=== PATIENT | male | born 1950 | race Caucasian/White ===

== ENCOUNTER → 2016-07-24 | Outpatient (CLI) | payer OTHER, BC | LOC: NUC 07:57 | DX: M85.80 Other specified disorders of bone density and structure, unspecified site (principal); I10 Essential (primary) hypertension ==

== ENCOUNTER → 2018-12-03 | Outpatient (CLI) | payer OTHER, BC ==
--- NOTE | 2018-12-04 07:53 | EKG ---
[place] [address] [address] [employer] [place] [address] ELECTROCARDIOGRAM REPORT Name: BERTHA LOPEZ Room #: REG CLI [facility]#: [id number] Admission: 12/03/18 Attend Phys: Kaveh Cruz MD Discharge: Date of : 48 Report #: [id number] THIS REPORT FOR: //name// [facility] Test Date: 2018-12-03 Test Time: 08:54:37 Pat Name: BERTHA LOPEZ Department: Room: Gender: M Medical Sales Representative: YAMILA : 1950 Requested By: Kaveh Cruz Order Number: [id number] MD: Luis Li Measurements Intervals [place] Rate: 69 P: -28 MS: 200 QRS: -11 QRSD: 108 T: 45 QT: 391 QTc: 419 Interpretive Statements Sinus rhythm Minimal ST elevation, anterior leads Compared to ECG 02/28/2012 08:03:38 No significant change was found Electronically Signed On 12-04-2018 7:52:52 CDT by Luis Li [email or web address] <ELECTRONICALLY SIGNED> By: Luis Li MD, [facility] 12/04/18 0752 Luis Li MD, [facility] /EPI
== END ==
LOC: RAD 08:19
DX: R06.00 Dyspnea, unspecified (principal)

== ENCOUNTER → 2019-03-17 | Outpatient (CLI) | payer OTHER, BC | LOC: SJCVC 11:24 | DX: R94.31 Abnormal electrocardiogram [ECG] [EKG] (principal); I10 Essential (primary) hypertension; E78.5 Hyperlipidemia, unspecified; E78.00 Pure hypercholesterolemia, unspecified; R06.02 Shortness of breath; R09.89 Other specified symptoms and signs involving the circulatory and respiratory systems; I73.9 Peripheral vascular disease, unspecified; R93.1 Abnormal findings on diagnostic imaging of heart and coronary circulation; Z79.899 Other long term (current) drug therapy ==

== ENCOUNTER → 2019-10-11 | Outpatient (CLI) | payer OTHER, BC | LOC: SJCVCIMAG 08:17 | PROVIDERS: ATTEND Internal Medicine Cardiovascular Disease | DX: I65.23 Occlusion and stenosis of bilateral carotid arteries (principal); I07.1 Rheumatic tricuspid insufficiency; R93.1 Abnormal findings on diagnostic imaging of heart and coronary circulation; I10 Essential (primary) hypertension ==

== ENCOUNTER → 2020-01-14 | Outpatient (CLI) | payer OTHER, BC | LOC: LAB 10:06 | PROVIDERS: ATTEND Internal Medicine | DX: Z20.828 Contact with and (suspected) exposure to other viral communicable diseases (principal) ==

== ENCOUNTER → 2020-02-28 | Outpatient (CLI) | payer OTHER | LOC: LAB 08:49 | PROVIDERS: ATTEND Internal Medicine | DX: Z20.828 Contact with and (suspected) exposure to other viral communicable diseases (principal) ==

== ENCOUNTER → 2020-06-08 | Outpatient (CLI) | payer OTHER, BC ==
[2020-06-08 09:55] LABS: ABSOLUTE NEUTROPHILS 3.2 thou/uL (1.4-8.2); BASOPHILS 0.3 % (0.0-2.0); EOSINOPHILS 1.4 % (0.0-3.0); HEMATOCRIT 45.7 % (42.0-52.0); HEMOGLOBIN 15.4 gm/dL (14.0-18.0); LYMPHOCYTES 15.6 % (24.0-44.0); MCH 32.7 pg (26.0-34.0); MCHC 33.7 g/dL (28.0-37.0); MCV 97.3 fL (80.0-100.0); MONOCYTES 10.2 % (1.0-8.0); PLATELET COUNT 140 thou/uL (150-400); POLYS 72.5 % (36.0-66.0); RDW 13.6 % (10.5-14.5); WBC 4.4 thou/uL (4.0-11.0)
[2020-06-08 10:08] LABS: ALBUMIN 4.1 g/dL (3.4-5.0); CALCIUM 9.1 mg/dL (8.5-10.1); CREATININE 1.3 mg/dL (0.7-1.3); POTASSIUM 4.2 mmol/L (3.5-5.1); TOTAL BILIRUBIN 1.4 mg/dL (0.2-1.0)
== END ==
LOC: RAD 08:29 → LAB 08:29
PROVIDERS: ATTEND Internal Medicine
DX: J98.4 Other disorders of lung (principal)

== ENCOUNTER → 2020-07-11 | Outpatient (CLI) | payer OTHER, BC | LOC: SJCVC 11:06 | PROVIDERS: ATTEND Internal Medicine Cardiovascular Disease | DX: R93.1 Abnormal findings on diagnostic imaging of heart and coronary circulation (principal); I10 Essential (primary) hypertension; E78.00 Pure hypercholesterolemia, unspecified; I77.9 Disorder of arteries and arterioles, unspecified; E78.5 Hyperlipidemia, unspecified; Z72.89 Other problems related to lifestyle; Z79.899 Other long term (current) drug therapy ==

== ENCOUNTER → 2021-03-21 | Outpatient (CLI) | payer OTHER, BC | LOC: RAD 09:40 | PROVIDERS: ATTEND Internal Medicine | DX: J98.4 Other disorders of lung (principal) ==

== ENCOUNTER → 2021-04-13 | Outpatient (CLI) | payer OTHER, BC | LOC: SJCVCIMAG 08:54 | PROVIDERS: ATTEND Internal Medicine Cardiovascular Disease | DX: I10 Essential (primary) hypertension (principal); E78.5 Hyperlipidemia, unspecified; R93.1 Abnormal findings on diagnostic imaging of heart and coronary circulation ==